=== PATIENT | male | born 1950 | race Caucasian/White ===

== ENCOUNTER 2020-04-03 20:05 | Emergency (ER) | payer MEDICARE, BC ==
--- NOTE | 2020-04-03 21:39 | EDM.PDOC ---
ED HPI GENERAL MEDICAL PROBLEM - General Chief Complaint: General Stated Complaint: LACERATION Time Seen by Provider: 04/03/20 21:15 Source of Information: Reports: Patient History Limitations: Reports: No Limitations - History of Present Illness Onset: Today Onset Date: 04/03/20 Onset Time: 16:00 Quality: Reports: Ache Severity: Mild Improves with: Reports: None Associated Symptoms: Reports: No Other Symptoms - Related Data Allergies Allergy/AdvReac Type Severity Reaction Status Date / Time oxycodone [From Percocet] Allergy Intermediate Nausea and Verified 04/03/20 21:41 Vomiting acetaminophen [From Vicodin] Allergy Redness Verified 04/03/20 21:40 hydrocodone [From Vicodin] Allergy Redness Verified 04/03/20 21:40 Home Meds: Home Meds Hydrochlorothiazide/Lisinopril [Lisinopril/HCTZ 20-12.5 MG] 12.5 - 20 mg PO DAILY 04/03/20 [History] allopurinoL [Zyloprim] 150 mg PO DAILY 04/03/20 [History] atorvaSTATin [Lipitor] 20 mg PO BEDTIME 04/03/20 [History] carvediloL [Carvedilol] 6.25 mg PO DAILY 04/03/20 [History] Past Medical History HEENT History: Reports: Allergic Rhinitis Cardiovascular History: Reports: Hypertension Musculoskeletal History: Reports: Gout, Other (See Below) Other Musculoskeletal History: rt great toe gout Social & Family History - Family History Family Medical History: Noncontributory - Tobacco Use Smoking Status *Q: Never Smoker - Caffeine Use Caffeine Use: Reports: Soda - Recreational Drug Use Recreational Drug Use: No ED ROS GENERAL - Review of Systems Review Of Systems: See Below Constitutional: Reports: No Symptoms HEENT: Reports: No Symptoms Respiratory: Reports: No Symptoms Cardiovascular: Reports: No Symptoms GI/Abdominal: Reports: No Symptoms Musculoskeletal: Reports: Shoulder Pain, Arm Pain, Hand Pain Skin: Reports: Wound Neurological: Reports: No Symptoms Psychiatric: Reports: No Symptoms Immunologic: Reports: No Symptoms ED EXAM, GENERAL - Physical Exam Exam: See Below Free Text/Narrative:: Patient slipped on wet boat launch, hit right elbow, 2 cm laceration with significant swelling to area. He states his right wrist and shoulder were also sore, but he has full ROM and no pain with palpation. CMS +.Denies head trauma. Unknown last tetanus. Exam Limited By: No Limitations General Appearance: Alert Head: Atraumatic Cardiovascular: Normal Peripheral Pulses Extremities: Arm Pain Neurological: Alert, Oriented Skin Exam: Warm, Dry ED GENERAL MEDICAL PROCEDURES - Laceration/Wound Repair Right Middle Posterior Elbow Lac/wound length in cm: 2 Appearance: Irregular, Clean, Moderately Contaminated Distal NVT: Neuro & Vascular Intact, No Tendon Injury Anesthetic Type: Local Local Anesthesia - Lidocaine (Xylocaine): 1% Plain Local Anesthetic Volume: 3cc Skin Prep: Providone-Iodine (Betadine), Sterile Drape Exploration/Debridement/Repair: Wound Explored, No Foreign Material Found Closed with: Sutures Suture Size: 4-0 # of Sutures: 5 Suture Type: Nylon, Interrupted Course - Vital Signs Last Recorded V/S: Last Vital Signs Temp 97.2 F 04/03/20 21:06 Pulse 73 04/03/20 21:06 Resp 18 04/03/20 21:06 BP 149/82 H 04/03/20 21:06 Pulse Ox 99 04/03/20 21:06 - Orders/Labs/Meds Orders: Active Orders 24 hr Category Date Time Status Elbow 2V Rt [CR] Stat Exams 04/03/20 21:21 Ordered Departure - Departure Time of Disposition: 22:22 Disposition: Admitted As Inpatient 64 Condition: Good Clinical Impression: Laceration, Wrist pain, right Right shoulder strain Qualifiers: Encounter type: initial encounter Qualified Code(s): S46.911A - Strain of unspecified muscle, fascia and tendon at shoulder and upper arm level, right arm, initial encounter - Discharge Information *PRESCRIPTION DRUG MONITORING PROGRAM REVIEWED*: Not Applicable *COPY OF PRESCRIPTION DRUG MONITORING REPORT IN PATIENT LASHONDA: Not Applicable Instructions: Muscle Strain, [id number], Muscle Strain, How to Use Cold Therapy, [id number] Sepsis Event Note (ED) - Evaluation Sepsis Screening Result: No Definite Risk - Focused Exam Vital Signs: Vital Signs Temp Pulse Resp BP Pulse Ox 04/03/20 21:06 97.2 F 73 18 149/82 H 99 - My Orders Last 24 Hours: My Active Orders 04/03/20 21:21 Elbow 2V Rt [CR] Stat - Assessment/Plan Last 24 Hours: My Active Orders 04/03/20 21:21 Elbow 2V Rt [CR] Stat
[2020-04-03] MEDS ORDERED: Ketorolac 60 MG/2 ML SDV IM ONE (22:00)
[2020-04-03] MEDS ORDERED: Diphtheria/Tetanus Toxoids,Adult (Td) 0.5 ML SDV IM ONE (22:00)
[2020-04-03] MEDS ORDERED: Ketorolac 30 MG/ML SDV ONE (22:07)
[2020-04-03] MEDS ORDERED: Lidocaine 1% 10 ML MDV INJECT ONE (22:34)
--- NOTE | 2020-04-04 11:32 | CR ---
DATE OF SERVICE: 04/03/20 CLINICAL DATA: elbow injury RIGHT ELBOW: There is soft tissue swelling and soft tissue emphysema along the extensor surface of the elbow. I do not see an acute fracture or dislocation. No lytic or blastic bone lesions. No joint effusion. [id number] [facility]
== END 2020-04-03 22:30 | disposition critical access hospital (66) ==
LOC: LB.ED 20:05
DX: S51.011A Laceration without foreign body of right elbow, initial encounter (principal); S46.911A Strain of unspecified muscle, fascia and tendon at shoulder and upper arm level, right arm, initial encounter; M25.531 Pain in right wrist; I10 Essential (primary) hypertension; M10.9 Gout, unspecified; Z88.5 Allergy status to narcotic agent; Z88.6 Allergy status to analgesic agent; Z79.899 Other long term (current) drug therapy; Z23 Encounter for immunization; W01.198A Fall on same level from slipping, tripping and stumbling with subsequent striking against other object, initial encounter
CPT/HCPCS: 12001; 73080; 90714; 99282; J1885; J2001